=== PATIENT | male | born 1970 | race Caucasian/White ===

== ENCOUNTER 2017-06-11 12:56 | Emergency (ER) | payer SELFPAY ==
[~2017-06-11] VITALS: Ht 195.6 cm; Wt 133.8 kg
[2017-06-11 13:18] VITALS: BP 155/81
[2017-06-11] MEDS ORDERED: HYDROcodone/APAP 5/325MG 1 TAB TABLET PO ONE (14:00)
[2017-06-11] MEDS ORDERED: CYCLOBENZAPRINE 10 MG TABLET. PO ONE (14:00)
[2017-06-11] MEDS ORDERED: CYCL-331 PO (14:07)
[2017-06-11] MEDS ORDERED: METH4TAB2 PO (14:07)
[2017-06-11] MEDS ORDERED: IBUP800T19 PO (14:07)
[2017-06-11] MEDS ORDERED: HYDR-971 PO (14:07)
--- NOTE | 2017-06-11 14:09 | PHYS DOC ---
Past History Past Medical History: No Pertinent History Past Surgical History: No Surgical History Smoking: Cigarettes Alcohol Use: Occasionally Drug Use: Marijuana Adult General Chief Complaint Chief Complaint: BACK PAIN OR INJURY HPI HPI 46-year-old male patient with history of chronic intermittent back pain complaining of low back pain for the last 1 week that getting worse since yesterday. Patient complaining of sharp pain in left lower back with radiation to back of left thigh without focal neuro deficit, urinary and bowel incontinence, fever and chills, nausea and vomiting, abdominal pain, history of injury. Patient rated his pain 9/10 and states Right moist heat pad on his back and took ibuprofen without improvement of his pain. Review of Systems Review of Systems Constitutional: Denies fever or chills [] Eyes: Denies change in visual acuity, redness, or eye pain [] HENT: Denies nasal congestion or sore throat [] Respiratory: Denies cough or shortness of breath [] Cardiovascular: No additional information not addressed in HPI [] GI: Denies abdominal pain, nausea, vomiting, bloody stools or diarrhea [] : Denies dysuria or hematuria [] Musculoskeletal: Reports back pain [] Integument: Denies rash or skin lesions [] Neurologic: Denies headache, focal weakness or sensory changes [] Endocrine: Denies polyuria or polydipsia [] All other systems were reviewed and found to be within normal limits, except as documented in this note. Current Medications Current Medications Current Medications Medications (Trade) Dose Ordered Sig/Roberto Start Time Stop Time Status Last Admin Dose Admin Acetaminophen/ Hydrocodone Bitart (Lortab 5/325) 1 tab 1X ONCE 06/11/17 14:00 06/11/17 14:01 DC Cyclobenzaprine HCl (Flexeril) 10 mg 1X ONCE 06/11/17 14:00 06/11/17 14:01 DC Allergies Allergies Allergies Coded Allergies Type Severity Reaction Last Updated Verified No Known Drug Allergies 06/11/17 No Physical Exam Physical Exam Constitutional: Well developed, well nourished, moderate distress, non-toxic appearance. [] HENT: Normocephalic, atraumatic Eyes: PERRLA, EOMI, conjunctiva normal, no discharge. [] Neck: Normal range of motion, no tenderness, supple, no stridor. [] Cardiovascular:Heart rate regular rhythm, no murmur [] Lungs & Thorax: Bilateral breath sounds clear to auscultation [] Abdomen: Bowel sounds normal, soft, no tenderness, no masses, no pulsatile masses. [] Skin: Warm, dry, no erythema, no rash. [] Back: No deformity, no midline tenderness, limited range of motion because of pain, left paraspinal muscle spasm, no neurovascular deficit Extremities: No tenderness, no cyanosis, no clubbing, ROM intact, no edema. [] Neurologic: Alert and oriented X 3, normal motor function, normal sensory function, no focal deficits noted. [] Psychologic: Affect normal, judgement normal, mood normal. [] Current Patient Data Vital Signs Vital Signs Date Time Temp Pulse Resp B/P (MAP) Pulse Ox O2 Delivery O2 Flow Rate FiO2 06/11/17 13:18 98.2 86 18 100 Room Air EKG EKG [] Radiology/Procedures Radiology/Procedures [] Course & Med Decision Making Course & Med Decision Making Evaluation of patient in ER showed 46-year-old male patient with history of intermittent chronic back pain that getting worse since yesterday. Patient had muscle spasm and limited range of motion. Patient treated with [place] and Flexeril and felt better. Patient instructed to apply ice on his back and follow up with his primary care physician. Dragon Disclaimer Dragon Disclaimer This electronic medical record was generated, in whole or in part, using a voice recognition dictation system. Departure Departure: Impression: Primary Impression: Sciatica Additional Impressions: Tobacco abuse Tobacco abuse counseling Disposition: HOME, SELF-CARE (At 1425) Condition: IMPROVED Referrals: PCP,NO (PCP) Patient Instructions: Lumbosacral Strain, Sciatica, Smoking Cessation Additional Instructions: Apply ice on your back Follow-up with your primary care physician in 3-5 days Return to ER if not getting better Scripts Hydrocodone Bit/Acetaminophen (NORCO 5-325 TABLET) 1 Each Tablet 1 TAB PO PRN Q6HRS Y for PAIN, #14 TAB 0 Refills Prov: GARY ALANIZ MD 06/11/17 Methylprednisolone (MEDROL) 4 Mg Tab.ds.pk 1 PKG PO UD, #1 PKG Prov: GARY ALANIZ MD 06/11/17 Cyclobenzaprine Hcl (CYCLOBENZAPRINE HCL) 10 Mg Tablet 1 TAB PO TID, #30 TAB Prov: GARY ALANIZ MD 06/11/17 Ibuprofen (IBUPROFEN) 800 Mg Tablet 1 TAB PO TID, #30 TAB Prov: GARY ALANIZ MD 06/11/17 Problem Qualifiers GARY ALANIZ MD Jun 11, 2017 14:09
== END 2017-06-11 14:17 | disposition home or self-care (01) ==
LOC: ER 12:56
DX: M54.42 Lumbago with sciatica, left side (principal); F12.10 Cannabis abuse, uncomplicated; F17.210 Nicotine dependence, cigarettes, uncomplicated; Z71.6 Tobacco abuse counseling
CPT/HCPCS: 99283

== ENCOUNTER 2019-09-10 00:09 | Emergency (ER) | payer SELFPAY ==
[~2019-09-10] VITALS: Ht 195.6 cm; Wt 102.0 kg
[~2019-09-10 00:09] MED LIST: CYCL-331 PO; HYDR-3165 PO; IBUP800T19 PO; METH4TAB2 PO
[2019-09-10 00:12] VITALS: BP 155/81
--- NOTE | 2019-09-10 00:16 | PHYS DOC ---
Past History Past Medical History: No Pertinent History Past Surgical History: No Surgical History Smoking: Cigarettes Alcohol Use: Occasionally Drug Use: Marijuana General Adult HPI: HPI: "....I ve been doing meth...carol heavy the last couple days.. I felt like...got something in my eye.. I tried to clean it out with cotton and tissue..maybe I over did.." Patient is a 48 year old male who presents with above hx and complaints of eye Lt. pain. Pt. denies any specific hx of trauma. Pt.stated he did try to wipe out any foreign body with tissue paper and cotton ball . Pt. states he attempted to clear out the Lt.eye. Pt.visual acuity in Lt eye is equal to Rt. eye. 20/20 [facility] [place]. Pt. does not remember his last tetanus. Pt. had inject conjunctival and cornea abrasion on black light check. No limbus injection or cell. No photophobia. Patient denies any history immunosuppression. Patient denies any specific ill contacts. No recent travel outside [facility]. Review of Systems: Review of Systems: Constitutional: Denies fever or chills Eyes: Denies change in visual acuity . Pt. complaints of Lt. eye conjunctivitis.. HENT: Denies nasal congestion or sore throat Respiratory: Denies cough or shortness of breath Cardiovascular: Denies chest pain or edema GI: Denies abdominal pain, nausea, vomiting, bloody stools or diarrhea : Denies dysuria Musculoskeletal: Denies back pain or joint pain Integument: Denies rash Neurologic: Denies headache, focal weakness or sensory changes Endocrine: Denies polyuria or polydipsia Lymphatic: Denies swollen glands Psychiatric: Denies depression or anxiety Heart Score: Risk Factors: Risk Factors: DM, Current or recent (<one month) smoker, HTN, HLP, family history of CAD, obesity. Risk Scores: Score 0 - 3: 2.5% MACE over next 6 weeks - Discharge Home Score 4 - 6: 20.3% MACE over next 6 weeks - Admit for Clinical Observation Score 7 - 10: 72.7% MACE over next 6 weeks - Early Invasive Strategies Family History: Family History: Noncontributory Current Medications: Current Meds: See nursing for home meds Allergies: Allergies: Allergies Coded Allergies Type Severity Reaction Last Updated Verified No Known Drug Allergies 06/11/17 No Physical Exam: PE: Constitutional: Well developed, well nourished,halic, atraumatic, bilateral external ears normal, oropharynx moist, no oral exudates, nose normal. [] Eyes: PERRLA, EOMI, conjunctiva normal in right eye, no discharge. Except findings left eye as per HPI Neck: Normal range of motion, no tenderness, supple, no stridor. [] Cardiovascular:Heart rate regular rhythm, no murmur [] Lungs & Thorax: Bilateral breath sounds equal apex with scattered wheezes on auscultation [] Abdomen: Bowel sounds normal, soft, no tenderness, no masses, no pulsatile masses. [] Skin: Warm, dry, no erythema, no rash. [] Back: No tenderness, no CVA tenderness. [] Extremities: No tenderness, no cyanosis, no clubbing, ROM intact, no edema. [] Neurologic: Alert and oriented X 3, normal motor function, normal sensory function, no focal deficits noted. [] Psychologic: Affect normal, judgement normal, mood normal. [] EKG: EKG: [] Radiology/Procedures: Radiology/Procedures: [] Course & Med Decision Making: Course & Med Decision Making Pertinent Labs and Imaging studies reviewed. (See chart for details) Patient use small amount erythromycin ointment to left eye 4 times a day. Patient may use Toradol eye drops 1 drop to left eye 4 times a day. Patient follow-up with ophthalmology. Patient return if any increased pain, redness or decreased vision. Must follow up. Pt. to not rub his left.eye. Impression: 1. Conjunctivitis 2. Corneal abrasion 3. History of methamphetamine abuse 4. Tobacco and Marijuana use [] Dragon Disclaimer: Dragon Disclaimer: This electronic medical record was generated, in whole or in part, using a voice recognition dictation system. Departure Departure: Disposition: 01 HOME/RESIDENCE PRIOR TO ADM Condition: STABLE Referrals: PCP,NO (PCP) Justification of Admission: Justification of Admission: Justification of Admission Dx: N/A Dragon Disclaimer This chart was dictated in whole or in part using Voice Recognition software in a busy, high-work load, and often noisy Emergency Department environment. It may contain unintended and wholly unrecognized errors or omissions. Dragon Disclaimer This chart was dictated in whole or in part using Voice Recognition software in a busy, high-work load, and often noisy Emergency Department environment. It may contain unintended and wholly unrecognized errors or omissions. SAMMI MEAD MD Sep 10, 2019 00:15
[2019-09-10] MEDS ORDERED: FLUORESCEIN 1MG EYE STRIP. OU ONE (01:00)
[2019-09-10] MEDS ORDERED: TETRACAINE 0.5% OPHTH SOLUTION 4ML BOTTLE. OD ONE (01:00)
[2019-09-10] MEDS ORDERED: KETOROLAC TROMETHAMINE 0.5% OPHTH SOLUTION BOTTLE. OS ONE (01:30)
[2019-09-10] MEDS ORDERED: ERYTHROMYCIN 0.5% OPHTH OINTMENT 1GM TUBE. OS ONE (01:30)
[2019-09-10] MEDS ORDERED: DIPH,PERTUSS(ACELL),TET VAC/PF 0.5 ML SYRINGE. VAX IM ONE (01:30)
== END 2019-09-10 01:40 | disposition home or self-care (01) ==
LOC: ER 00:09
DX: S05.02XA Injury of conjunctiva and corneal abrasion without foreign body, left eye, initial encounter (principal); H10.9 Unspecified conjunctivitis; F15.10 Other stimulant abuse, uncomplicated; F12.10 Cannabis abuse, uncomplicated; F17.210 Nicotine dependence, cigarettes, uncomplicated; X58.XXXA Exposure to other specified factors, initial encounter; Y93.89 Activity, other specified; Y92.89 Other specified places as the place of occurrence of the external cause; Y99.8 Other external cause status
CPT/HCPCS: 90471; 90715; 99284